=== PATIENT | female | born 1985 | race Caucasian/White ===

== ENCOUNTER 2020-01-06 22:32 | Emergency (ER) | payer MEDICAID, SELFPAY ==
[~2020-01-06] VITALS: Ht 160 cm; Wt 59.1 kg
[2020-01-06] MEDS ORDERED: KETOROLAC 30 MG/ML 1ML VIAL IV ONE (23:00)
[2020-01-06] MEDS ORDERED: ONDANSETRON 4MG/2ML VIAL IV ONE (23:00)
[2020-01-06 23:22] LABS: BASO # 0.1 10^3/uL (0.0-0.2); BASO % 0.6 % (0.0-1.0); EOS # 0.1 10^3/uL (0.0-0.5); EOS % 0.6 % (0.0-3.0); HEMATOCRIT 41.3 % (36.0-47.0); HEMOGLOBIN 14.3 g/dl (12.0-15.5); LYMPH # 3.9 10^3/uL (1.5-5.0); LYMPH % 32.3 % (24.0-44.0); MEAN CORPUSCULAR HEMOGLOBIN 32.1 pg (27.0-33.0); MEAN CORPUSCULAR HGB CONC 34.6 g/dl (32.0-36.5); MEAN CORPUSCULAR VOLUME 92.8 fl (80.0-96.0); MONO # 0.8 10^3/uL (0.0-0.8); NEUTROPHILS # 7.1 10^3/uL (1.5-8.5); NEUTROPHILS % 59.2 % (36.0-66.0); PLATELET COUNT, AUTOMATED 433 10^3/uL (150-450); RED BLOOD COUNT 4.45 10^6/uL (4.00-5.40)
--- NOTE | 2020-01-06 23:57 | REPVR ---
PROCEDURE INFORMATION: Exam: CT Abdomen And Pelvis Without Contrast Exam date and time: 01/06/2020 11:35 PM Age: 34 years old Clinical indication: Abdominal pain; Additional info: Right renal colic TECHNIQUE: Imaging protocol: Computed tomography of the abdomen and pelvis without contrast. Axial, coronal and sagittal reformatted images were created and reviewed. Radiation optimization: All CT scans at this facility use at least one of these dose optimization techniques: automated exposure control; mA and/or kV adjustment per patient size (includes targeted exams where dose is matched to clinical indication); or iterative reconstruction. COMPARISON: No relevant prior studies available. FINDINGS: Liver: Unremarkable. Gallbladder and bile ducts: No radiodense gallstones. No biliary ductal dilatation. Pancreas: Unremarkable. Spleen: Unremarkable. Adrenals: Unremarkable. Kidneys and ureters: No mass. No radiodense calculi. No hydronephrosis. Stomach and bowel: No bowel wall thickening. No obstruction. No pneumatosis. Appendix: Normal. Intraperitoneal space: No free fluid. No organized fluid collection. No free air. Vasculature: Unremarkable. No aneurysm. Lymph nodes: No pathologically enlarged lymph nodes. Bladder: Unremarkable. Reproductive: 3 x 2.9 cm right adnexal cystic lesion and/or hydrosalpinx. Bones/joints: No acute osseous abnormality. Soft tissues: Unremarkable. IMPRESSION: 1. Limited noncontrast examination without CT evidence of urolithiasis. 2. 3 x 2.9 cm right adnexal cystic lesion and/or hydrosalpinx. If clinically indicated, pelvic ultrasound may be obtained for further evaluation. Electronically signed by: Sohail Chaudhary On 01/06/2020 23:56:39 PM
[2020-01-07 00:14] VITALS: BP 130/72
[2020-01-07] MEDS ORDERED: traMADol 50 MG TAB (BULK 4 TAB ED) PO ONE (00:15)
--- NOTE | 2020-01-11 08:54 | ED PDOC ---
Post-Departure Follow-Up ct abd/p faxed to dr gomez for fu Cuate Grullon MD Jan 11, 2020 08:54
== END 2020-01-07 00:16 | disposition home or self-care (01) ==
LOC: M ED 22:32
DX: N83.201 Unspecified ovarian cyst, right side (principal); Z88.0 Allergy status to penicillin
CPT/HCPCS: 74176; 80047; 81001; 84702; 85025; 96374; 96375; 99284; J1885; J2405

== ENCOUNTER → 2024-08-01 | Outpatient (CLI) | payer BC ==
[2024-08-01 08:07] LABS: FREE T4 1.01 NG/DL (0.89-1.76); THYROID STIMULATING HORMONE 3.684 uIU/ML (0.55-4.78)
[2024-08-02 16:32] LABS: THRYOGLOBULIN ANTIBODIES (ATA) < 1 IU/mL (< or = 1); THYROGLOBULIN QUANTITATIVE 13.2 ng/mL (2.8-40.9)
== END ==
LOC: M LAB 06:43
PROVIDERS: ATTEND Internal Medicine
DX: E07.9 Disorder of thyroid, unspecified (principal); F41.9 Anxiety disorder, unspecified